=== PATIENT | male | born 1980 | race Caucasian/White ===

== ENCOUNTER → 2024-02-22 | Day surgery (SDC) | payer OTHER ==
[2024-02-21 11:22] VITALS: BMI 18.1
== END ==
LOC: CSHSDC 06:50
PROVIDERS: ATTEND Otolaryngology Plastic Surgery within the Head & Neck
DX: C32.9 Malignant neoplasm of larynx, unspecified (principal); Z53.1 Procedure and treatment not carried out because of patient's decision for reasons of belief and group pressure
CPT/HCPCS: 93005; 93010